=== PATIENT | male | born 2000 | race Caucasian/White ===

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

== ENCOUNTER 2022-06-28 13:03 | Emergency (ER) | payer OTHER ==
[2022-06-28 13:16] VITALS: BP 110/65; PULSE 73; RESP 18; TEMP 98.2
== END 2022-06-28 15:16 | disposition home or self-care (01) ==
LOC: JERFT 13:03
DX: R05.1 Acute cough (principal); J02.9 Acute pharyngitis, unspecified
CPT/HCPCS: 71046-TC-FY; 99283-25